=== PATIENT | male | born 1930 | race Caucasian/White ===

== ENCOUNTER 2019-05-20 15:10 | Emergency (ER) | payer BC, OTHER ==
[~2019-05-20] VITALS: Ht 175.3 cm; Wt 72.6 kg
[2019-05-20 15:16] VITALS: Ht 175.3 cm; Wt 72.6 kg
[2019-05-20 23:49] VITALS: BP 143/70
== END 2019-05-20 23:50 | disposition home or self-care (01) ==
LOC: ED 15:10
DX: S32.010A Wedge compression fracture of first lumbar vertebra, initial encounter for closed fracture (principal); I10 Essential (primary) hypertension; F03.90 Unspecified dementia, unspecified severity, without behavioral disturbance, psychotic disturbance, mood disturbance, and anxiety; W05.0XXA Fall from non-moving wheelchair, initial encounter; Y93.89 Activity, other specified; Y92.89 Other specified places as the place of occurrence of the external cause; Y99.8 Other external cause status